=== PATIENT | male | born 1960 | race Two or more races ===

== ENCOUNTER → 2018-07-02 | Outpatient (CLI) | payer BC ==
--- NOTE | 2018-07-02 18:12 | MR ---
EXAMINATION TYPE: MR lumbar spine wo con DATE OF EXAM: 07/02/2018 COMPARISON: None HISTORY: Severe LBP, radiating down rt leg TECHNIQUE: Multiplanar, multisequence images of the lumbar spine were acquired. The lumbar vertebra have normal alignment. Posterior elements are intact. The lumbar nerve roots appe ar normal. Neural foramina are widely patent. Disc spaces are fairly normal. There is no compression fracture. There is no lumbar paraspinal mass. There is no lumbar spinal stenosis. There is small post erior disc bulge at L5-S1 without impingement on the spinal canal. IMPRESSION: Small posterior L5-S1 disc bulge. No spinal stenosis or lumbar disc herniation. No fracture.
== END ==
LOC: RADMRIMAIN 17:22
PROVIDERS: ATTEND Psychiatry & Neurology Neurology
DX: M51.27 Other intervertebral disc displacement, lumbosacral region (principal)
CPT/HCPCS: 72148